=== PATIENT | male | born 1995 | race American Indian/Alaskan Native ===

== ENCOUNTER 2017-04-17 20:13 | Emergency (ER) | payer SELFPAY ==
[2017-04-17 21:15] LABS: Basophils % (Auto) 0.2 % (0.0-1.8); Eosinophils % (Auto) 1.8 % (0.0-4.3); Hematocrit 42.7 % (35.5-45.6); Hemoglobin 14.2 gm/dl (11.8-15.2); Mean Corpuscular HGB Conc 33 % (32-34); Mean Corpuscular Hemoglobin 30 pg (28-32); Mean Corpuscular Volume 89 fl (84-94); Platelet Count 180 K/mm3 (140-440); Red Blood Count 4.78 M/mm3 (3.65-5.03); Red Cell Distribution Width 13.8 % (13.2-15.2); White Blood Count 6.1 K/mm3 (4.5-11.0)
[2017-04-17 21:36] LABS: Alanine Aminotransferase 15 units/L (7-56); Albumin 4.3 g/dL (3.9-5); Albumin/Globulin Ratio 1.5 %; Alkaline Phosphatase 55 units/L (35-129); Anion Gap 21 mmol/L; BUN/Creatinine Ratio 11.11; Blood Urea Nitrogen 10 mg/dL (9-20); Calcium 8.8 mg/dL (8.4-10.2); Carbon Dioxide 21 mmol/L (22-30); Chloride 105.5 mmol/L (98-107); Glucose 119 mg/dL (75-100); Potassium 3.5 mmol/L (3.6-5.0); Sodium 144 mmol/L (137-145); Total Protein 7.2 g/dL (6.3-8.2)
[2017-04-17] MEDS ORDERED: PROVENTIL IH ONE (21:39)
--- NOTE | 2017-04-17 21:58 | XRay Report ---
FINAL REPORT PROCEDURE: XR CHEST ROUTINE 2V TECHNIQUE: PA and lateral chest radiographs were obtained. CPT 44735 HISTORY: Shortness of breath COMPARISON: No prior studies are available for comparison. FINDINGS: Heart: Normal. Mediastinum/Vessels: Normal. Lungs/Pleural space: Left upper and lower lung increased densities. Bony thorax: No acute osseous abnormality. Other: There are monitoring devices. IMPRESSION: Left upper and lower lung infiltrates.
[2017-04-17 23:12] VITALS: BP 140/71
--- NOTE | 2017-04-17 23:17 | Emergency Department Report ---
HPI - General Chief Complaint: Dyspnea/Respdistress Time Seen by Provider: 04/17/17 21:39 - HPI HPI: Patient complaining of cough, low-grade fever, wheezing, shortness of breath 2 days. Patient with history of asthma and ran out of his inhalers. Patient denies any sick contacts, recent travel or recent hospitalizations. ED Past Medical Hx - Past Medical History Previous Medical History?: Yes Hx Asthma: Yes - Surgical History Past Surgical History?: Yes Additional Surgical History: T&A - Family History Family history: hypertension - Social History Smoking Status: Never Smoker - Medications Home Medications: Home Medications Medication Instructions Recorded Confirmed Last Taken Type ALBUTEROL Inhaler [ProAir HFA 2 puff IH QID PRN #1 inha 04/17/17 Unknown Rx Inhaler] Albuterol Sulfate [Albuterol 0.63% 0.63 mg IH TID PRN 04/17/17 04/17/17 Unknown History NEBS] methylPREDNISolone [Medrol] 4 mg PO QAM #1 tab.ds.pk 04/17/17 Unknown Rx ED Review of Systems ROS: Stated complaint: PHOEBE Other details as noted in HPI Comment: All other systems reviewed and negative Respiratory: cough, wheezing Cardiovascular: chest pain Physical Exam - Physical Exam Vital Signs: Vital Signs 04/17/17 04/17/17 04/17/17 20:16 20:26 20:30 Temperature 98.8 F Pulse Rate 111 H 110 H Pulse Rate [ Bilateral Throughout] Respiratory 20 16 Rate Respiratory Rate [Bilateral Throughout] Blood Pressure 126/69 120/70 O2 Sat by Pulse 98 94 Oximetry 04/17/17 04/17/17 04/17/17 20:34 21:00 21:19 Temperature Pulse Rate 100 H Pulse Rate [ Bilateral Throughout] Respiratory 20 22 Rate Respiratory Rate [Bilateral Throughout] Blood Pressure 123/72 O2 Sat by Pulse 94 96 Oximetry 04/17/17 04/17/17 04/17/17 21:30 21:45 22:00 Temperature Pulse Rate 104 H 112 H Pulse Rate [ 85 90 Bilateral Throughout] Respiratory 16 20 Rate Respiratory 15 20 Rate [Bilateral Throughout] Blood Pressure 128/75 132/75 O2 Sat by Pulse Oximetry 04/17/17 04/17/17 04/17/17 22:14 22:30 23:00 Temperature Pulse Rate 110 H 108 H Pulse Rate [ Bilateral Throughout] Respiratory 20 25 H Rate Respiratory Rate [Bilateral Throughout] Blood Pressure 118/85 140/71 O2 Sat by Pulse 96 Oximetry Physical Exam: - General Limitations: No Limitations General appearance: alert, in no apparent distress - Head Head exam: Present: atraumatic, normocephalic - Eye Eye exam: Present: normal appearance, EOMI. Absent: nystagmus - ENT ENT exam: Present: normal exam, normal orophraynx, mucous membranes moist, normal external ear exam - Neck Neck exam: Present: normal inspection, full ROM. Absent: tenderness, meningismus - Respiratory Respiratory exam: Present: Expiratory wheezing - Cardiovascular Cardiovascular Exam: Present: regular rate, normal rhythm, normal heart sounds. Absent: bradycardia, tachycardia, irregular rhythm, systolic murmur, diastolic murmur, rubs, gallop - GI/Abdominal GI/Abdominal exam: Present: soft, normal bowel sounds. Absent: distended, tenderness, guarding, rebound, rigid, pulsatile mass - Rectal Rectal exam: Present: deferred - Extremities Exam Extremities exam: Present: Right lower leg cellulitis, which ulcers draining purulent material. - Back Exam Back exam: Present: normal inspection, full ROM. Absent: tenderness, CVA tenderness (R), CVA tenderness (L), muscle spasm, paraspinal tenderness, vertebral tenderness - Neurological Exam Neurological exam: Present: alert, oriented X3, normal gait, other (Extraocular movements intact. Tongue midline. No facial droop. Facial sensation intact to light touch in the V1, V2, V3 distribution bilaterally. 5 and 5 strength in 4 extremities.. Sensation is intact to light touch in 4 extremities.). Absent : motor sensory deficit - Skin Skin exam: Present: warm, dry, intact, normal color. Absent: rash ED Course Vital Signs 04/17/17 04/17/17 04/17/17 20:16 20:26 20:30 Temperature 98.8 F Pulse Rate 111 H 110 H Pulse Rate [ Bilateral Throughout] Respiratory 20 16 Rate Respiratory Rate [Bilateral Throughout] Blood Pressure 126/69 120/70 O2 Sat by Pulse 98 94 Oximetry 04/17/17 04/17/17 04/17/17 20:34 21:00 21:19 Temperature Pulse Rate 100 H Pulse Rate [ Bilateral Throughout] Respiratory 20 22 Rate Respiratory Rate [Bilateral Throughout] Blood Pressure 123/72 O2 Sat by Pulse 94 96 Oximetry 08/04/17/17 04/17/17 21:30 21:45 22:00 Temperature Pulse Rate 104 H 112 H Pulse Rate [ 85 90 Bilateral Throughout] Respiratory 16 20 Rate Respiratory 15 20 Rate [Bilateral Throughout] Blood Pressure 128/75 132/75 O2 Sat by Pulse Oximetry 04/17/17 04/17/17 04/17/17 22:14 22:30 23:00 Temperature Pulse Rate 110 H 108 H Pulse Rate [ Bilateral Throughout] Respiratory 20 25 H Rate Respiratory Rate [Bilateral Throughout] Blood Pressure 118/85 140/71 O2 Sat by Pulse 96 Oximetry ED Medical Decision Making - Lab Data Result diagrams: 04/17/17 20:57 04/17/17 20:57 Critical care attestation.: If time is entered above; I have spent that time in minutes in the direct care of this critically ill patient, excluding procedure time. ED Disposition Clinical Impression: Acute bronchitis Disposition: DC-01 TO HOME OR SELFCARE Is pt being admited?: No Does the pt Need Aspirin: No Condition: Stable Instructions: Acute Bronchitis (ED) Prescriptions: ALBUTEROL Inhaler [ProAir HFA Inhaler] 2 puff IH QID PRN #1 inha PRN Reason: Shortness Of Breath methylPREDNISolone [Medrol] 4 mg PO QAM #1 tab.ds.pk Referrals: PRIMARY CARE, [Primary Care Provider] - 3-5 Days
== END 2017-04-17 23:31 | disposition home or self-care (01) ==
LOC: ED 20:13
DX: J20.9 Acute bronchitis, unspecified (principal); J45.909 Unspecified asthma, uncomplicated
CPT/HCPCS: 36415; 71020; 80053; 84484; 85025; 93005; 93010; 94640; 99284

== ENCOUNTER 2018-08-24 10:34 | Emergency (ER) | payer BC ==
[2018-08-24 12:11] VITALS: BP 124/84
[2018-08-24] MEDS ORDERED: DUONEB *Not for PRN Use IH ONE (12:24)
--- NOTE | 2018-08-24 12:27 | Emergency Department Report ---
Chief Complaint: Upper Respiratory Infection Stated Complaint: FLU LIKE SYMPTOMS Time Seen by Provider: 08/24/18 12:16 - HPI History of Present Illness: 22-year-old male presents to the emergency department with a two-day history of body aches, cough, subjective fever and some nausea without vomiting. He denies any shortness of breath, sore throat, vomiting, diarrhea. He has a past medical history of asthma. No primary care physician. No recent travel or sick contacts at home but the patient says that he spent some time outside without any coat on. - ROS Review of Systems: Positive for subjective fever, body aches, cough Negative for shortness of breath, chest pain, vomiting, diarrhea - Exam Vital Signs: Vital Signs 08/24/18 12:09 Temperature 98.1 F Pulse Rate 91 H Respiratory 16 Rate Blood Pressure 124/84 O2 Sat by Pulse 96 Oximetry Physical Exam: A productive; respiratory examination. There is some mild wheezing throughout the chest. Awake and alert and in no acute distress. MSE screening note: Focused history and physical exam performed. Due to findings the following was ordered: I have ordered for a DuoNeb to be done. The patient will have a 2 view chest x- ray and a rapid flu swab. ED Disposition for MSE Condition: Stable Referrals: PRIMARY CARE, [Primary Care Provider] - 3-5 Days
--- NOTE | 2018-08-24 13:10 | Emergency Department Report ---
Minor Respiratory - HPI Chief Complaint: Upper Respiratory Infection Stated Complaint: FLU LIKE SYMPTOMS Time Seen by Provider: 08/24/18 12:16 Duration: 2 Days Pain Location: Nose Severity: moderate Minor Respiratory: Yes Rhinorrhea, Yes Able to Tolerate Fluids, Yes Cough, Yes Fever, No Sore Throat, No Ear Pain, No Sick Contacts, No Hemoptysis, No Chest Pain, No Shortness of Breath Other History: This is a 22-year-old -Greek male who presents with fever and cough for 2 days. Patient states the redness and now the cold on without a coat and when he woke up the next morning he had chills, fever, or cough. Past medical history of asthma. Patient states he has not taken OTC cold medication or used inhaler. He denies nausea, vomiting, diarrhea, constipation, chest pain, shortness of breath, or myalgia. ED Review of Systems ROS: Stated complaint: FLU LIKE SYMPTOMS Other details as noted in HPI Constitutional: fever. denies: chills ENT: congestion. denies: ear pain, throat pain Respiratory: cough. denies: shortness of breath, wheezing Cardiovascular: denies: chest pain, palpitations Gastrointestinal: denies: abdominal pain, nausea, diarrhea Neurological: denies: headache, weakness, paresthesias Psychiatric: denies: anxiety, depression ED Past Medical Hx - Past Medical History Hx Asthma: Yes - Surgical History Additional Surgical History: T&A - Social History Smoking Status: Never Smoker Substance Use Type: None - Medications Home Medications: Home Medications Medication Instructions Recorded Confirmed Last Taken Type ALBUTEROL Inhaler (OR & NICU) 2 puff IH QID PRN #1 inha 04/17/17 Unknown Rx [ProAir HFA Inhaler] Albuterol Sulfate [Albuterol 0.63% 0.63 mg IH TID PRN 04/17/17 04/17/17 Unknown History NEBS] Azithromycin [Zithromax] 250 mg PO DAILY #6 tablet 04/17/17 Unknown Rx methylPREDNISolone [Medrol] 4 mg PO QAM #1 tab.ds.pk 04/17/17 Unknown Rx Benzonatate [Tessalon Perle] 100 mg PO TID PRN #30 capsule 08/24/18 Unknown Rx Fluticasone [Flonase] 1 spray NS QDAY #1 bottle 08/24/18 Unknown Rx Oseltamivir Phosphate [Tamiflu] 75 mg PO BID 5 Days #10 capsule 08/24/18 Unknown Rx Minor Respiratory Exam - Exam General: Vital signs noted. No distress. Alert and acting appropriately. HEENT: Yes Pharyngeal Erythema (erythematous posterior pharynx, uvula midline w/o exudate), Yes Moist Mucous Membranes, Yes Rhinorrhea (turbinate is mildly congested with clear discharge), No Pharyngeal Exudates, No Conjuctival Injection, No Frontal Tenderness, No Maxillary Tenderness Ear: Neither TM Bulge, Neither TM Erythema, Neither EAC Pain, Neither EAC Discharge Neck: Yes Supple, No Adenopathy Lungs: Yes Good Air Exchange, No Wheezes, No Ronchi, No Stridor, No Cough, No Labored Respirations, No Retractions, No Use of Accessory Muscles, No Other Abnormal Lung Sounds Heart: Yes Regular, No Murmur Abdomen: Yes Normal Bowel Sounds, No Tenderness, No Peritoneal Signs Skin: No Rash, No Edema Neurologic: Alert and oriented, no deficits. Musculoskeletal: Unremarkable. ED Course Vital Signs 08/24/18 12:09 Temperature 98.1 F Pulse Rate 91 H Respiratory 16 Rate Blood Pressure 124/84 O2 Sat by Pulse 96 Oximetry ED Medical Decision Making - Lab Data Lab Results 08/24/18 Range/Units 13:17 Influenza A (Rapid) Positive A (Negative) Influenza B (Rapid) Negative (Negative) - Radiology Data Radiology results: report reviewed ROUTINE CHEST, TWO VIEWS: HISTORY: Cough. The trachea, heart, mediastinal contour, lung whatley and bony thorax are unremarkable. IMPRESSION: Unremarkable chest x-ray. - Medical Decision Making This is a 22 y.o. male presents with flulike symptoms. He presents with fever, cough, and body aches for 2 days. Past medical history of fast. Tolerating fluids. Given DuoNeb treatment once in ER. Obtained rapid flu and chest x-ray. Positive for influenza A. Unremarkable chest x-ray. Treat outpatient with supportive care. Start tamiflu, benzonatate, and Flonase. Instructed to use for several inhaler for shortness of breath and wheezing. Discussed plan of care with patient and agree with plan. Discharged home in stable condition. F/U with primary care provider if symptoms are not improving in 3 days. Critical care attestation.: If time is entered above; I have spent that time in minutes in the direct care of this critically ill patient, excluding procedure time. ED Disposition Clinical Impression: Influenza A, Cough in adult, Fever and chills Disposition: TO HOME OR SELFCARE Is pt being admited?: No Does the pt Need Aspirin: No Condition: Stable Instructions: Influenza (ED) Additional Instructions: Avoid large crowds to prevent transmission of virus. Increase fluid intake to prevent dehydration. Wash hands frequently. Take Tylenol or ibuprofen every 4-6 hours for relief of headache, fever, and body aches. Return to school after 24 hours of being fever free. Follow up with solderer assembler in 2-3 days if symptoms are not improving. Prescriptions: Benzonatate [Tessalon Perle] 100 mg PO TID PRN #30 capsule PRN Reason: Cough Fluticasone [Flonase] 1 spray NS QDAY #1 bottle Oseltamivir Phosphate [Tamiflu] 75 mg PO BID 5 Days #10 capsule Referrals: [facility] [Outside] - 3-5 Days [facility] [Provider Group] - 3-5 Days [facility] [Provider Group] - 3-5 Days Forms: Work/School Release Form(ED) Time of Disposition: 13:49
--- NOTE | 2018-08-24 13:13 | XRay Report ---
ROUTINE CHEST, TWO VIEWS: HISTORY: Cough. The trachea, heart, mediastinal contour, lung whatley and bony thorax are unremarkable. IMPRESSION: Unremarkable chest x-ray.
== END 2018-08-24 14:00 | disposition home or self-care (01) ==
LOC: ED 10:34
DX: J09.X2 Influenza due to identified novel influenza A virus with other respiratory manifestations (principal); J45.909 Unspecified asthma, uncomplicated
CPT/HCPCS: 71046; 87400; 94640